=== PATIENT | female | born 1980 | race Caucasian/White ===

== ENCOUNTER 2018-05-12 13:09 | Emergency (ER) | payer OTHER ==
[~2018-05-12] VITALS: Ht 160 cm; Wt 102.5 kg
[2018-05-12] MEDS ORDERED: SYNTHROID150 MCG PO (13:27)
[2018-05-12] MEDS ORDERED: TRAMADOL 50 MG50 MG PO (13:27)
[2018-05-12] MEDS ORDERED: NUVARING VAGIN1 EACH VG (13:28)
[2018-05-12 13:34] LABS: URINE BILIRUBIN NEGATIVE (Negative); URINE BLOOD 3+ (Negative); URINE CLARITY CLOUDY; URINE COLOR RED; URINE GLUCOSE-RANDOM TRACE (Negative); URINE KETONES NEGATIVE (Negative); URINE LEUKOCYTES-REFLEX TRACE (Negative); URINE NITRITE-REFLEX NEGATIVE (Negative); URINE PROTEIN 3+ (Negative); URINE SPECIFIC GRAVITY 1.025 (1.005-1.030)
[2018-05-12 13:36] LABS: CASTS None Seen /LPF (None Seen); CRYSTALS None Seen /LPF (None Seen); MUCUS 0-3 Light strn/LPF (None Seen); SQUAMOUS 0-3 Few /LPF (0-3); URINE RBC >20 Many /HPF (0-2); URINE WBC-REFLEX 0-5 Rare /HPF (0-5)
[2018-05-12 13:50] LABS: ABSOLUTE BASOPHILS 0.1 thou/uL (0.0-0.2); ABSOLUTE EOSINOPHILS 0.2 thou/uL (0.0-0.7); ABSOLUTE LYMPHOCYTES 2.1 thou/uL (0.8-5.3); ABSOLUTE MONOCYTES 0.7 thou/uL (0.0-1.2); ABSOLUTE NEUTROPHILS 6.1 thou/uL (1.6-8.1); BASOPHILS 0.8 %; EOSINOPHILS 2.2 %; HEMATOCRIT 34.7 % (37.0-47.0); HEMOGLOBIN 11.7 gm/dL (12.0-15.0); LYMPHOCYTES 22.9 %; MCH 30.9 pg (26.0-34.0); MCHC 33.6 g/dL (28.0-37.0); MCV 91.8 fL (80.0-100.0); MONOCYTES 7.9 %; MPV 9.3 fl. (7.2-11.1); NUCLEATED RBCS 0 /100WBC; PLATELET COUNT* 333 thou/uL (150-400); POLYS 66.2 %; RBC 3.78 mil/uL (4.20-5.00); RDW-CV 13.8 % (10.5-14.5); WBC 9.2 thou/uL (4.0-11.0)
[2018-05-12 13:54] LABS: CALCIUM 8.6 mg/dL (8.5-10.1); CREATININE 0.8 mg/dL (0.6-1.3); POTASSIUM 3.7 mmol/L (3.5-5.1)
[2018-05-12 13:59] LABS: ALBUMIN 3.5 g/dL (3.4-5.0); TOTAL BILIRUBIN 0.3 mg/dL (<0.1-1.0); TOTAL PROTEIN 7.3 g/dL (6.4-8.2)
[2018-05-12 14:20] VITALS: BP 145/70
== END 2018-05-12 14:20 | disposition home or self-care (01) ==
LOC: M.ERS 13:09
PROVIDERS: Nurse Practitioner Family
DX: N93.9 Abnormal uterine and vaginal bleeding, unspecified (principal)

== ENCOUNTER 2021-10-08 01:32 | Emergency (ER) | payer OTHER ==
[~2021-10-08] VITALS: Ht 160 cm; Wt 106.6 kg
[~2021-10-08 01:32] MED LIST: NUVARING VAGIN1 EACH VG; SYNTHROID150 MCG PO; TRAMADOL 50 MG50 MG PO
[2021-10-08] MEDS ORDERED: LEVO-T100 MCG PO (01:54)
[2021-10-08] MEDS ORDERED: ZYRTEC10 M4 PO (01:55)
[2021-10-08 02:50] LABS: INFLUENZA A ANTIGEN Negative (Negative); INFLUENZA B ANTIGEN Negative (Negative)
[2021-10-08] MEDS ORDERED: ACETAMINOPHEN-1 EAC2 PO (03:14)
[2021-10-08] MEDS ORDERED: DIPHEDRYL12.5 MG/1 PO (03:14)
[2021-10-08] MEDS ORDERED: PREDNISONE 20 M20 M1 PO (03:14)
[2021-10-08 03:25] VITALS: BP 140/52
== END 2021-10-08 03:25 | disposition home or self-care (01) ==
LOC: M.ERS 01:32
PROVIDERS: Personal Emergency Response Attendant
DX: J02.9 Acute pharyngitis, unspecified (principal); Z20.822 Contact with and (suspected) exposure to COVID-19; B34.9 Viral infection, unspecified; R05.9 Cough, unspecified; Z98.890 Other specified postprocedural states; Z79.899 Other long term (current) drug therapy